=== PATIENT | male | born 1995 | race Two or more races ===

== ENCOUNTER 2018-12-19 13:19 | Emergency (ER) | payer MEDICAID ==
[~2018-12-19] VITALS: Ht 170.2 cm; Wt 64.9 kg
[2018-12-19 13:22] VITALS: BP 132/84
[2018-12-19] MEDS ORDERED: HYDROMORPHONE INJ 2 MG/ML DISP.SYRIN IV ONE ×2 (13:30→14:00)
[2018-12-19] MEDS ORDERED: HYDROMORPHONE 1 MG/1 ML DISP.SYRIN ONE ×2 (13:40→14:21)
--- NOTE | 2018-12-19 13:47 | NUR ---
[id number], FROM HOME, C/O LEFT SHOULDER PAIN Hx DISLOCATION, +N/V DRINKING ALCOHOL HEAVILY LAST NIGHT. PT AAOX4, VSS. DENIES CP, SOB, DIZZINESS, N/V AT THIS TIME. PT SEEN & EVAL'D BY BERNARDO CRUZ & WILL CONT TO MONITOR.
[2018-12-19] MEDS ORDERED: HYDROMORPHONE 1 MG/1 ML DISP.SYRIN IV ONE (14:30)
--- NOTE | 2018-12-19 14:41 | NUR ---
BERNARDO CRUZ REDUCED LT SHOULDER, PT TRI WELL. APPLIED LT SHOULDER IMMOBILIZER, PT TRI WELL WITH GOOD CMS.
== END 2018-12-19 16:09 | disposition home or self-care (01) ==
LOC: ER 13:20
DX: S43.085A Other dislocation of left shoulder joint, initial encounter (principal); G40.909 Epilepsy, unspecified, not intractable, without status epilepticus; Z76.0 Encounter for issue of repeat prescription; X58.XXXA Exposure to other specified factors, initial encounter; Y93.89 Activity, other specified; Y92.89 Other specified places as the place of occurrence of the external cause; Y99.8 Other external cause status
CPT/HCPCS: 23650; 96374; 96376; 99284; J1170 ×2

== ENCOUNTER 2024-07-01 00:37 | Emergency (ER) | payer MEDICAID ==
[~2024-07-01] VITALS: Ht 170.2 cm; Wt 65.8 kg
[2024-07-01 01:16] VITALS: BP 130/66; TEMP 97.5; O2SAT 99
[2024-07-01] MEDS ORDERED: AZIT250T13 PO (01:23)
== END 2024-07-01 01:30 | disposition home or self-care (01) ==
LOC: ER 00:43
DX: J32.8 Other chronic sinusitis (principal); J34.89 Other specified disorders of nose and nasal sinuses